=== PATIENT | female | born 1985 | race Caucasian/White ===

== ENCOUNTER → 2017-05-10 | Outpatient (CLI) | payer OTHER | LOC: FIMAGING 12:35 | PROVIDERS: ATTEND Advanced Practice Midwife | DX: O48.0 Post-term pregnancy (principal); O40.3XX0 Polyhydramnios, third trimester, not applicable or unspecified; Z3A.41 41 weeks gestation of pregnancy ==

== ENCOUNTER 2017-05-21 01:30 | Inpatient (IN) | payer OTHER ==
[2017-05-21] MEDS ORDERED: MISOPROSTOL 200 MCG TAB PO PRN (01:39)
[2017-05-21] MEDS ORDERED: OLIVE OIL 118 ML BTL MISC PRN (01:39)
[2017-05-21] MEDS ORDERED: TERBUTALINE SULFATE 1 MG/ML VIAL IV PRN (01:39)
[2017-05-21] MEDS ORDERED: LR 1,000 ML IV PRN (01:39)
[2017-05-21] MEDS ORDERED: OXYTOCIN 20 UNIT in LR 1,000 ML IV PRN (01:39)
[2017-05-21] MEDS ORDERED: AMMONIA AROMATIC 1 EACH AMP IH PRN (01:39)
[2017-05-21] MEDS ORDERED: EPSOM SALT 454 GM TP PRN (01:39)
[2017-05-21] MEDS ORDERED: LIDOCAINE 1% 300 MG/30 ML SDV ONE (01:41)
[2017-05-21] MEDS ORDERED: TERBUTALINE SULFATE 1 MG/ML VIAL ONE (01:42)
[2017-05-21] MEDS ORDERED: OLIVE OIL 118 ML BTL ONE (01:42)
[2017-05-21] MEDS ORDERED: AMMONIA AROMATIC 1 EACH AMP IH ONE (01:42)
[2017-05-21] MEDS ORDERED: OXYTOCIN 10 UNIT/ML VIAL ONE (01:42)
[2017-05-21] MEDS ORDERED: MISOPROSTOL 200 MCG TAB ONE (01:42)
[2017-05-21 01:58] LABS: PLATELET COUNT 237 10^3/uL (150-400)
[2017-05-21] MEDS ORDERED: BUPIVACAINE 0.25% 30 ML SDV ONE (02:19)
[2017-05-21] MEDS ORDERED: PHENYLEPHRINE HCL 100 MCG/ML SYR ONE (02:20)
--- NOTE | 2017-05-21 02:25 | PREANESOB ---
Obstetric Pre-Anesthesia Info - General Info Proposed Procedure: PITER : 1 Para: 0 RAMON: 05/07/17 Gestational Age: 42 week(s) and 0 day(s) Anesthesia Allergies/Adverse Reactions: Allergy/AdvReac Type Severity Reaction Status Date / Time No Known Allergies Allergy Unverified 05/21/17 01:39 Visit Medications: Generic Name Dose Route Start Last Admin Trade Name Freq PRN Reason Stop Dose Admin Ammonia (Aromatic Spirit) 1 each 05/21/17 01:39 Ammonia Aromatic IH 05/31/17 01:38 ONCE PRN Fainting Lactated Ringer's 1,000 mls @ 0 mls/hr 05/21/17 01:39 Lr IV 05/22/17 01:38 PRN PRN SEE PROTOCOL CONDITIONS Protocol Per Protocol Oxytocin 20 unit/ Lactated 1,002 mls @ 150 mls/hr 05/21/17 01:39 Ringer's IV PRN PRN Post- bleeding Fentanyl/Bupivacaine HCl 100 mls @ 0 mls/hr 05/21/17 02:30 Fentanyl/Bupivacaine/Ns 2 Mcg/Ml 0.1% (Premix EP 05/31/17 02:29 CONT JUAN Protocol As Directed Lactated Ringer's 500 mls @ 0 mls/hr 05/21/17 02:30 Lr IV 11/17/17 02:29 CONT JUAN As Directed Ibuprofen 600 mg 05/21/17 01:39 Motrin PO 11/17/17 01:38 Q6HRS PRN post , inflammation Magnesium Sulfate 454 gm 05/21/17 01:39 Epsom Salt TP 11/17/17 01:38 Q1H PRN perineal discomfort Misoprostol 800 - 1,000 mcg 05/21/17 01:39 Cytotec PO ONCE PRN Vaginal Atony/Bleeding [place] Oil 118 ml 05/21/17 01:39 Sweet Oil MISC 11/17/17 01:38 ONCE PRN perineal massage Terbutaline Sulfate 0.25 mg 05/21/17 01:39 Brethine IV 11/17/17 01:38 ONCE PRN Tachysystole Discontinued Medications Generic Name Dose Route Start Last Admin Trade Name Freq PRN Reason Stop Dose Admin Ammonia (Aromatic Spirit) Confirm 05/21/17 01:42 Ammonia Aromatic Administered 05/21/17 01:43 Dose 1 each IH .STK-MED ONE Bupivacaine HCl Confirm 05/21/17 02:19 Sensorcaine 0.25% Sdv Administered 05/21/17 02:20 Dose 30 ml .ROUTE .STK-MED ONE Lidocaine HCl Confirm 05/21/17 01:41 Lidocaine Hcl 1% Administered 05/21/17 01:42 Dose 300 mg .ROUTE .STK-MED ONE Misoprostol Confirm 05/21/17 01:42 Cytotec Administered 05/21/17 01:43 Dose 1,000 mcg .ROUTE .STK-MED ONE [place] Oil Confirm 05/21/17 01:42 Sweet Oil Administered 05/21/17 01:43 Dose 118 ml .ROUTE .STK-MED ONE Oxytocin Confirm 05/21/17 01:42 Pitocin Administered 05/21/17 01:43 Dose 40 unit .ROUTE .STK-MED ONE Phenylephrine HCl Confirm 05/21/17 02:20 Neosynephrine Administered 05/21/17 02:21 Dose 1,000 mcg .ROUTE .STK-MED ONE Terbutaline Sulfate Confirm 05/21/17 01:42 Brethine Administered 05/21/17 01:43 Dose 1 mg .ROUTE .STK-MED ONE - Anesthesia History Response to Local Anesthetics: Normal Anesthesia & Operative History: No Prior Problems Family Anesthesia History: Not Applicable - Vital Signs Height/Weight (Nursing): Height 170.18 cm Weight 81.647 kg Labs: 05/21/17 01:30 - Plan Anesthetic Plan: PITER Consent Signed and on Chart: Yes Patient/Guardian Understands and Agrees to Plan: Yes
[2017-05-21] MEDS ORDERED: fentaNYL 2MCG/ML/BUP 0.1% RTU 100 ML EP SCH (02:30)
[2017-05-21] MEDS ORDERED: LR 500 ML IV SCH (02:30)
[2017-05-21] MEDS ORDERED: fentaNYL 200 MCG, BUPIVACAINE 0.5% 20 ML in NS 100 ML EP SCH (02:30)
--- NOTE | 2017-05-21 03:01 | POSTANESTH ---
Post Anesthetic Evaluation Cardiovascular Status: Normal, Stable, Similar to Pre-Op Cond Respiratory Status: Normal, Stable, Similar to Pre-op Cond. Level of Consciousness/Mental Status: Can Participate in Eval, Alert and Oriented Pain Control: Adequate, Prn Tx Ordered Nausea/Vomiting Control: Adequate, Prn Tx Ordered Complications Possibly Related to Anesthesia: None Noted
[2017-05-21] MEDS ORDERED: LR 500 ML IV PRN (03:47)
[2017-05-21] MEDS ORDERED: OXYTOCIN 30 UNIT in NS 500 ML IV SCH (04:00)
--- NOTE | 2017-05-21 04:58 | GHP ---
[f rep st] PREOP HISTORY AND PHYSICAL DATE OF ADMISSION: 05/21/2017 HISTORY UPON ADMISSION: The patient is a 31-year-old, G1, P0, at 42 weeks gestation with an estimate d due date of 05/07 by last menstrual period with a 9-week ultrasound. The patient transfers in from the [facility] for pain management. The patient has had a protracted labor, which spontan eously started on the night of 05/19 at 2200. The patient labored all through the night and had spon taneous leakage of clear fluid by the patient's account at 1400 on 05/20. She noted additional leaka ge of clear fluid and presented to the [facility] center approximately 1600. At that time, she was 4 cm d ilated and had light meconium-stained fluid on exam. The patient made progress to 5 cm and had artif icial rupture of her forebag at 2019 and report of thick meconium-stained fluid from continued observ ation at the [facility]. At approximately 2200, the patient was noted to be 9 cm dilated, 90% effa christiano at 0 station. She was still felt to be 9 cm several hours later and requested to be transferred to [facility] for an epidural placement. Upon admission, the patient was requesting this and Anesthesia was consulted and came in placed an epidural for the patient. The patient has improved pain control since the epidural was placed. The patient reports back labor previously, however, more recently is just feeling the pressure with the epidural. The patient repor ts nausea through the labor and had a fair amount of emesis throughout the day on 05/20. She now rep orts a mild headache that she feels might be from sleep deprivation and hunger. The patient denies n ausea or headaches earlier in the . She denies any elevated blood pressures during prior of fice visits. Upon evaluation at the [facility] center, there were some elevated blood pressures of 130/90 s. HISTORY: The patient had care in [place] and transferred to the [facility] ter approximately 27 weeks. records from the [facility] are available for review. The [facility] had ultrasounds in [place] with the first initial anatomy evaluation showing inadequate views o f several anatomic areas. Patient had a followup in mid December, which showed adequate views of most of the inadequate anatomy, except for the diaphragm. The patient had an ultrasound here on February 22 due to postdates and the patient was noted to have a normal biophysical profile, an anterior plac enta, and polyhydramnios with an NICOLE of 27 cm. Limited anatomy evaluation was all normal. labs from the center reported blood type of O positive with negative antibody screen. Our lab reports a blood type of O negative, and this was pursued further with a phone call to the [facility]. They checked back to records from [place] and it is confirmed that the prior blood type was O neg ative, but accidentally mis-transcribed into the [place] records. After transfer to the [facility], the patient was not advised of the blood type and, therefore, did not receive RhoGAM. The patient is educated about her blood type and the recommendation of RhoGAM after if the ba by's blood type is a positive result. The patient and her understand. The patient is reassu red that the antibody screen at this point is negative. Other labs, RPR nonreactive, HIV ne gative. Rubella immune, hepatitis B surface antigen negative, hepatitis C negative. Pap smear rachana l. Gonorrhea and chlamydia negative. Urine culture negative. TSH 2.9, one hour Glucola normal. He matocrit stable through the at 38%. Vitamin D level was 26 and repeated later and was 29. GBS culture was negative. No notes of any complications at the center or from prior [facility] ecords. PAST MEDICAL HISTORY: Only significant for anxiety and depression. The patient previously was on 10 0 mg of Zoloft, but that looks like it was increased through the to 150 mg daily. PAST SURGICAL HISTORY: Negative. PAST OBSTETRIC HISTORY: Negative. ALLERGIES: No known drug allergies. CURRENT MEDICATIONS: Only the Zoloft 150 mg a day and vitamins. The patient had been takin g vitamin D daily. SOCIAL HISTORY: The patient is and here has supportive family and her with her. The patient is a nonsmoker. No alcohol or drug use. LABORATORY DATA: Laboratory values that are available upon admission, the CBC showing an elevated wh ite count greater than 24,000, platelet counts were 237,000, hematocrit was 42.3. [facility] labs were sent with the blood pressures elevated on admission. Labs were all normal with creatinine 0.7, uric acid 5.5, liver function tests were normal with the LDH greater than 800. Again, the blood type noted wa s O negative with negative antibody screen. PHYSICAL EXAM: GENERAL: Upon admission, the patient is a well-developed, well-nourished, white fema le, in decreasing physical distress with contractions now that the epidural was placed. VITAL SIGNS: The patient is afebrile with initial couple of blood pressures quite elevated in the 140s over 90s to 110s. However, this was during distress with contractions. After the patient's anxiety and stres s decreased, they were more in the 90s, and now after epidural, the diastolics were more consistently in the 70s and 80s. LUNGS: Clear to auscultation bilaterally. CARDIOVASCULAR: Regular rate and r hythm. heart tones have had initially a category 1 tracing with a baseline in the 110s to 120s with accelerations and good variability. No decelerations noted. Now, after the epidural, the base line is continued around 110s to 120s with good variability. At times, there appears to be slight dr op of the baseline after the contractions to the 100s. Contractions were 2-3 minutes apart prior to and immediately after the epidural. Now they have spaced more to 4-5 minutes apart. The patient was advised to keep the contractions stimulated with low-dose Pitocin versus nipple stim and the patient opted for nipple stimulation protocol using a breast pump. She did pursue this and had periodic inc rease of contractions to 2-3 minutes apart again. When she stops pumping, the contractions space aga in. Physical exam was performed immediately prior to epidural placement and the patient had become c ompletely dilated, but the head was still at 0 station with questionable asynclitic position by the R N's exam. EXTREMITIES: Nontender with mild edema. ASSESSMENT: Intrauterine at 42 weeks gestation. Transfer from [facility] for pain manag ement. Slightly elevated blood pressures upon admission with negative PIH labs. Blood pressures imp roved after epidural. History of polyhydramnios noted on ultrasound on 05/10. Thick meconium-staine d fluid noted at center, and moderate meconium-stained fluid noted here on exam. GBS culture n egative. Maternal blood type O negative with negative antibody screen. No RhoGAM was administered i n the . PLAN: The patient now getting more comfortable with epidural and we will continue to stimulate eithe r with nipple stim or Pitocin to maintain an adequate pattern. The patient is passively allowing isacc cent at this point, but will actively begin pushing soon. Will ensure if the 's blood type is positive, that the patient gets RhoGAM. We will watch blood pressures closely after delivery to see if there is an element of PIH. Meconium-stained fluid and the C[employer]D. AUDIT CLERK will be involved with delivery. /[id number]/MODL
[2017-05-21] MEDS: SERTRALINE HCL 100 MG TAB PO SCH (05:09)
[2017-05-21] MEDS: SERTRALINE HCL 50 MG TAB PO SCH (05:10)
[2017-05-21] MEDS ORDERED: ACETAMINOPHEN 325 MG TAB PO PRN (08:36)
[2017-05-21] MEDS ORDERED: SIMETHICONE 80 MG TAB CHEW PO PRN (08:36)
[2017-05-21] MEDS ORDERED: HYDROCORTISONE 0.5% CREAM TP PRN (08:36)
[2017-05-21] MEDS ORDERED: HYDROCODONE/APAP 5/325 TAB PO PRN (08:36)
[2017-05-21] MEDS ORDERED: ceFAZolin 2 GM in NS 100 ML IV ONE (08:38)
--- NOTE | 2017-05-21 08:42 | OBDEL ---
Info Type: Vaginal Presentation at Delivery: Vertex L&D Analgesia/Anesthesia Type: Epidural GBS+: No Intrapartum Medications: Generic Name Dose Route Start Last Admin Trade Name Freq PRN Reason Stop Dose Admin Lactated Ringer's 1,000 mls @ 0 mls/hr 05/21/17 01:39 05/21/17 01:48 Lr IV 05/22/17 01:38 1,000 mls PRN PRN Administration SEE PROTOCOL CONDITIONS Protocol Per Protocol Lactated Ringer's 500 mls @ 0 mls/hr 05/21/17 02:30 05/21/17 03:08 Lr IV 11/17/17 02:29 500 mls CONT JUAN Administration As Directed Oxytocin 30 unit/ Sodium 503 mls @ 0 mls/hr 05/21/17 04:00 05/21/17 05:38 Chloride IV 11/17/17 03:59 503 mls CONT JUAN Administration Protocol Per Protocol Sertraline HCl 100 mg 05/21/17 04:00 05/21/17 05:09 Zoloft PO 11/17/17 03:59 100 mg DAILY JUAN Administration Sertraline HCl 50 mg 05/21/17 04:00 05/21/17 05:10 Zoloft PO 11/17/17 03:59 50 mg DAILY JUAN Administration Indications for Delivery: Spontaneous Labor, SROM Vaginal Delivery - Delivery Provider Delivery Physician/CNM: Katerina Weinstein Proctoring Provider: Merlene Kiser - Labor and Delivery Onset of Contractions Date: 05/19/17 Onset of Contractions Time: 22:00 Onset of Contractions Type: Augmented Rupture of Membranes Date: 05/26/17 Rupture of Membranes Time: 14:00 Rupture of Membranes Type: Spontaneous Amniotic Fluid Color: Meconium Stained Dilation Complete Date: 05/21/17 Dilation Complete Time: 05:00 Placenta Delivery Date: 05/21/17 Placenta Delivery Time: 08:00 Total Hours of Labor: 34 Laceration: 2nd Degree Repair: 3-0, 4-0, Vicryl Vaginal Sponge Count Correct: Yes Vaginal Needle Count Correct: Yes Vaginal Sweep Performed: Yes EBL: 400 Delivery Events: Other (Specify) (velamentous cord manual removal of placenta . will treat with 2gms of ancef x 1) - Medications Labor Augmentation/Induction Indication: Contraction Strength Inadequate Sidney Data RAMON: 05/07/17 Gestational Age: 42 week(s) and 0 day(s) Al Delivery Date: 05/21/17 Delivery Time: 07:52 Sex of Infant: Male Score (1 Min): 5 Score (5 Min): 1 Score (10 Min): 9 ICD10 Worksheet Patient Problems: Problems Problem Status Onset Normal labor Acute Post-dates Acute Thick meconium stained amniotic fluid Acute
[2017-05-21] MEDS ORDERED: ceFAZolin 2 GM/SWFI 2 GM/20 ML SYR IVP ONE (08:45)
[2017-05-21] MEDS: IBUPROFEN 600 MG TAB PO PRN ×3 (09:02→22:35)
--- NOTE | 2017-05-21 12:03 | PDMN ---
Medical Necessity Medical necessity: Patient meets inpatient criteria per CNM and physician notes and MCG [id number] Vaginal Delivery.
[2017-05-21] MEDS ORDERED: CALCIUM CARBONATE 500 MG CHEWABLE TAB PO PRN (12:39)
[2017-05-21 14:28] VITALS: RESP 16
--- NOTE | 2017-05-21 15:00 | OBPP ---
Progress Note Assessment/Plan: Assessment: Plan: Subjective/ Course: 05/21/17 14:56 Discussed with patient and family choices for transfer for mom and baby. Baby to be transferred to [facility]. Attempt to transfer mom as well. BAsically if no difficultys otherwise would need to be transferred to [place]. Choices given to patient will stay here for 24h and then be discharged in the am to go to [facility]. Manual removeal of the placenta. Ancef prophylactically and several elevated blood pressures. Decided transfer not the best choice. Will stay for 24h. Objective: 05/21/17 01:30 05/21/17 01:30 Patient ABO/Rh O NEGATIVE 05/21/17 01:30 Uric Acid 5.5 mg/dL (2.5-6.8) 05/21/17 01:30 Total Bilirubin 0.6 mg/dL (0.1-1.4) 05/21/17 01:30 Conjugated Bilirubin 0.4 mg/dL (0.0-0.5) 05/21/17 01:30 Unconjugated Bilirubin 0.2 mg/dL (0.0-1.1) 05/21/17 01:30 AST 34 IU/L (14-46) 05/21/17 01:30 ALT 39 IU/L (9-52) 05/21/17 01:30 Lactate Dehydrogenase 818 IU/L (313-618) H 05/21/17 01:30 Temp Pulse Resp BP Pulse Ox 36.7 C 100 16 132/88 H 94 05/21/17 14:00 05/21/17 14:00 05/21/17 14:00 05/21/17 14:00 05/21/17 13:00
--- NOTE | 2017-05-21 16:15 | POSTANESTH ---
Post Anesthetic Evaluation Cardiovascular Status: Normal, Stable, Similar to Pre-Op Cond Respiratory Status: Normal, Stable, Similar to Pre-op Cond. Level of Consciousness/Mental Status: Can Participate in Eval, Alert and Oriented Pain Control: Adequate, Prn Tx Ordered Nausea/Vomiting Control: Adequate, Prn Tx Ordered Complications Possibly Related to Anesthesia: None Noted Notes: Pt seen and examined, day 1 s/p w PITER. Pt rates pain control as excellent. Block has resolved completely. Denies MONTES/N/Vpruritis. Able to ambulate easily. Back site c/d/i, no e/e/e.
[2017-05-21] MEDS: DOCUSATE SODIUM 100 MG CAP PO PRN (22:34)
[2017-05-22] MEDS: IBUPROFEN 600 MG TAB PO PRN ×2 (05:37→12:01)
[2017-05-22] MEDS: DOCUSATE SODIUM 100 MG CAP PO PRN (08:56)
[2017-05-22] MEDS: SERTRALINE HCL 50 MG TAB PO SCH (08:57)
[2017-05-22] MEDS: SERTRALINE HCL 100 MG TAB PO SCH (08:57)
[2017-05-22 08:59] VITALS: BP 121/79; PULSE 87; TEMP 97.9; O2SAT 97
--- NOTE | 2017-05-22 09:06 | OBGCSDC ---
General Delivery Information - General Info : 1 Para: 1 Abortions: 0 Type: Vaginal L&D Analgesia/Anesthesia Type: Epidural Admission Date: 05/21/17 Labs: Patient ABO/Rh O NEGATIVE 05/21/17 01:30 Hct 32.2 % (38.0-47.0) L D 05/22/17 05:10 - Hospital Course : 05/21/17 14:56 Discussed with patient and family choices for transfer for mom and baby. Baby to be transferred to [facility]. Attempt to transfer mom as well. BAsically if no difficultys otherwise would need to be transferred to [place]. Choices given to patient will stay here for 24h and then be discharged in the am to go to [facility]. Manual removeal of the placenta. Ancef prophylactically and several elevated blood pressures. Decided transfer not the best choice. Will stay for 24h. Vaginal - Delivery Provider Delivery Physician/CNM: Katerina Weinstein - Diagnosis Labor: Augmented Rupture of Membranes Type: Spontaneous Amniotic Fluid Color: Meconium Stained Laceration: 2nd Degree Repair: 3-0, 4-0, Vicryl Delivery Events: Other (Specify) (velamentous cord manual removal of placenta . will treat with 2gms of ancef x 1) - Delivery EBL: 400 [place] Data RAMON: 05/07/17 Gestational Age: 42 week(s) and 1 day(s) Al Delivery Date: 05/21/17 Delivery Time: 07:52 Sex of Infant: Male Watson Weight (gm): 3482 g Score (1 Min): 5 Score (5 Min): 1 Score (10 Min): 9 Discharge Information - Discharge Information Condition: Good Instruction/Follow Up: Four Weeks, Six Weeks
--- NOTE | 2017-05-22 09:26 | OBGCSDC ---
General Delivery Information - General Info : 1 Para: 1 Abortions: 0 Type: Vaginal L&D Analgesia/Anesthesia Type: Epidural Admission Date: 05/21/17 Labs: Patient ABO/Rh O NEGATIVE 05/21/17 01:30 Hct 32.2 % (38.0-47.0) L D 05/22/17 05:10 - Hospital Course : 05/21/17 14:56 Discussed with patient and family choices for transfer for mom and baby. Baby to be transferred to [facility]. Attempt to transfer mom as well. BAsically if no difficultys otherwise would need to be transferred to [place]. Choices given to patient will stay here for 24h and then be discharged in the am to go to [facility]. Manual removeal of the placenta. Ancef prophylactically and several elevated blood pressures. Decided transfer not the best choice. Will stay for 24h. 05/22/17 09:16 S) Pt doing well, reports min pain and bleeding. she is ambulating and voiding without difficulty. She is pumping - baby is at [facility] in [place]. She desires discharge home today so she can go be with her baby. O) VSS, afebrile- no further elevated BP's constitutional: WNWF, A&Ox3 HEENT: normocephalic, atraumatic, supple Heart: RRR, No murmur Chest: CTA-B Abdomen: Soft, nontender Uterus: Firm at U-2 Lochia: Minimal rubra Perineum: Intact, healing well Extremities: Trace edema, and negative Daniela's sign Neuro: Grossly normal A) 31-year-old S/P PPD#1 P) Discharge home today Continue Pelvic rest [id number] Discussed danger signs (infection, preeclampsia, depression, heavy bleeding, etc ) RTO in 4/6 weeks if desired - may FU with center. Unsure at this time where she will follow up. Vaginal - Delivery Provider Delivery Physician/CNM: Katerina Weinstein - Diagnosis Labor: Augmented Rupture of Membranes Type: Spontaneous Amniotic Fluid Color: Meconium Stained Laceration: 2nd Degree Repair: 3-0, 4-0, Vicryl Delivery Events: Other (Specify) (velamentous cord manual removal of placenta . will treat with 2gms of ancef x 1) - Delivery EBL: 400 Data RAMON: 05/07/17 Gestational Age: 42 week(s) and 1 day(s) Al Delivery Date: 05/21/17 Delivery Time: 07:52 Sex of Infant: Male Weight (gm): 3482 g Score (1 Min): 5 Score (5 Min): 1 Score (10 Min): 9 Discharge Information - Discharge Information Prescriptions: Ibuprofen [Motrin (*)] 600 mg PO Q6HRS PRN #60 tab PRN Reason: post , inflammation Condition: Good Instruction/Follow Up: Four Weeks, Six Weeks
== END 2017-05-22 13:00 | disposition home or self-care (01) | DRG 775 ==
LOC: FLD 01:30 → FOB 16:00
PROVIDERS: ADMIT Obstetrics & Gynecology; ATTEND Obstetrics & Gynecology
PROC: 10E0XZZ Delivery of Products of Conception, External Approach (ICD-10-PCS; principal; 2017-05-21)
PROC: 0KQM0ZZ Repair Perineum Muscle, Open Approach (ICD-10-PCS; principal; 2017-05-21)
DX: O62.0 Primary inadequate contractions (principal); Z37.0 Single live birth; Z3A.42 42 weeks gestation of pregnancy; O70.1 Second degree perineal laceration during delivery
CPT/HCPCS: G0463; J0690; J2370; J2590; J3010; J3105